=== PATIENT | male | born 1990 | race Two or more races ===

== ENCOUNTER 2025-02-23 19:14 | Emergency (ER) | payer MEDICAID ==
[~2025-02-23] VITALS: Ht 185.4 cm; Wt 108.0 kg
[2025-02-23] MEDS ORDERED: TETRAcaine 5 ML BOTTLE ONE (21:27)
[2025-02-23] MEDS: TETRACAINE HCL 0.5% OPHTALMIC 15 ML BOTTLE OP ONE (21:45)
[2025-02-23 23:37] VITALS: BP 111/64; TEMP 99.4; O2SAT 96
== END 2025-02-23 23:37 | disposition home or self-care (01) ==
LOC: ER 19:16
DX: S05.12XA Contusion of eyeball and orbital tissues, left eye, initial encounter (principal); Y04.0XXA Assault by unarmed brawl or fight, initial encounter; Y93.89 Activity, other specified; Y92.89 Other specified places as the place of occurrence of the external cause; Y99.8 Other external cause status
CPT/HCPCS: 70486-TC